=== PATIENT | male | born 1945 | race Two or more races ===

== ENCOUNTER → 2017-07-29 | Outpatient (CLI) | payer OTHER ==
--- NOTE | 2017-07-29 09:09 | Diagnostic Imaging Report ---
Indication: Abdominal pain Technique: Continuous helical transaxial imaging of the abdomen and pelvis was obtained from the lung bases to the pubic symphysis. No intravenous contrast was administered. Coronal 2-D reformats were also obtained. Automatic Exposure Control was utilized. Total Dose length Product (DLP): 812.[address] Dose Index Volume (CTDIvol): 14.46 mGy Comparison: none Findings: The lung bases are essentially clear. Evaluation of solid organs limited on this study done without contrast. There is no nephrolithiasis and no hydronephrosis. Mild arterial calcifications are noted. Diverticula demonstrated in the colon. Bladder is mildly distended. Prostate is prominent. The appendix is not seen. There are no secondary signs of acute appendicitis. There is narrowing of intervertebral discs and accompanying endplate osteophyte formation. Hypertrophied facet joints also demonstrated.. A low-density cyst or mass in the lower pole right kidney noted. IMPRESSION: No acute findings appreciated. Multiple incidental findings as above [facility] has communicated the preliminary results to the Emergency Department. Their findings are largely concordant with this report. The CT scanner at [facility] is accredited by the [employer] and the scans are performed using dose optimization techniques as appropriate to a performed exam including Automatic Exposure control.
== END | disposition home or self-care (01) ==
LOC: RAD 03:50
DX: R10.9 Unspecified abdominal pain (principal); K57.90 Diverticulosis of intestine, part unspecified, without perforation or abscess without bleeding; N20.0 Calculus of kidney
CPT/HCPCS: 74176

== ENCOUNTER 2020-08-03 10:41 | Emergency (ER) | payer MEDICARE, OTHER ==
[~2020-08-03] VITALS: Ht 160 cm; Wt 90.7 kg
[2020-08-03] MEDS ORDERED: Solu-MEDROL 125mg Inj IVP ONE (11:00)
[2020-08-03] MEDS ORDERED: Ipratropium 0.02% Inh Soln 2.5ml UD HHN ONE (11:00)
[2020-08-03] MEDS ORDERED: PREDNISONE20 MG ORAL (11:06)
[2020-08-03] MEDS ORDERED: ALBUTEROL SULF8.5 G1 INH (11:06)
[2020-08-03] MEDS ORDERED: AMLODIPINE BESYL5 MG ORAL (11:06)
[2020-08-03] MEDS ORDERED: METOPROLOL TART50 M1 ORAL (11:08)
[2020-08-03] MEDS ORDERED: OMEPRAZOLE20 M2 ORAL (11:08)
[2020-08-03] MEDS ORDERED: LIPITOR80 MG ORAL (11:08)
[2020-08-03 11:12] VITALS: BP 120/64
[2020-08-03] MEDS: Albuterol ud Inhalation HHN SCH ×2 (11:12→11:30)
[2020-08-03 11:13] LABS: BASOPHILS % (AUTO) 1.5 % (0.0-2.0); EOSINOPHILS % (AUTO) 16.1 % (0.0-3.0); HEMATOCRIT 44.3 % (42.0-52.0); HEMOGLOBIN 14.2 G/DL (14.2-18.0); LYMPHOCYTES % (AUTO) 25.5 % (20.0-45.0); MEAN CORPUSCULAR VOLUME 91 FL (80-99); MONOCYTES % (AUTO) 7.2 % (1.0-10.0); NEUTROPHILS % (AUTO) 49.7 % (45.0-75.0); PLATELET COUNT 216 K/UL (150-450); RED BLOOD COUNT 4.84 M/UL (4.70-6.10); RED CELL DISTRIBUTION WIDTH 12.7 % (11.6-14.8); WHITE BLOOD COUNT 6.3 K/UL (4.8-10.8)
--- NOTE | 2020-08-03 11:15 | Emergency Room Report ---
History of Present Illness General Chief Complaint: Dyspnea/Respdistress Source: Patient Present Illness HPI Patient presents with several days of worsening dyspnea. He has been using his inhaler more frequently. Also he has dyspnea on exertion. Over the last few days he has had severe chest pain with coughing. He feels this sharp and also pressure on the left-hand side of his chest he is not sure if this is his heart. He denies any fevers or chills. Patient was vaccinated for Covid and got his second dose last Saturday. Risk factors for cardiac disease: Hypercholesterolemia and hypertension No sore throat, palpitations, nausea, vomiting, diarrhea, dysuria, abdominal pain, joint pain, rashes, depression, anxiety, visual changes, dizziness, headache. In the past the patient had esophageal surgery and needs to pay close attention to his dietary intake. Allergies: Coded Allergies: No Known Allergies (Unverified , 08/03/20) COVID-19 Screening Contact w/high risk pt: No Experienced COVID-19 symptoms?: Yes Patient History Past Medical History: see triage record Past Surgical History: other - Esophageal surgery Social History: Denies: smoking, alcohol use, drug use Social History Narrative Born in [place] Reviewed Nursing Documentation: PMH: Agreed; PSxH: Agreed Nursing Documentation-PMH Past Medical History: No History, Except For Hx Cardiac Problems: Yes - high cholesterol Hx Hypertension: Yes Hx Asthma: Yes Hx Gastrointestinal Problems: Yes Review of Systems All Other Systems: negative except mentioned in HPI Physical Exam Vital Signs Date Time Temp Pulse Resp B/P (MAP) Pulse Ox O2 Delivery O2 Flow Rate FiO2 08/03/20 10:57 98.2 95 20 145/64 (91) 97 Room Air Sp02 EP Interpretation: reviewed, normal General Appearance: alert, GCS 15, non-toxic, mild distress Head: normocephalic Eyes: bilateral eye normal inspection, bilateral eye PERRL, bilateral eye EOMI ENT: normal pharynx, moist mucus membranes Neck: supple Respiratory: no accessory muscle use, respiratory distress - Mild, wheezing, expiration Cardiovascular #1: regular rate, rhythm, no edema Cardiovascular #2: 2+ radial (R) Gastrointestinal: normal inspection, normal bowel sounds, non tender, no mass, non-distended Musculoskeletal: back normal, normal range of motion, no calf tenderness, gait/station normal Neurologic: alert, oriented x3, grossly normal Psychiatric: mood/affect normal Skin: no rash, warm/dry Medical Decision Making Diagnostic Impression: Primary Impression: Asthma exacerbation Qualified Codes: J45.41 - Moderate persistent asthma with (acute) exacerbation Additional Impressions: Chest pain Qualified Codes: R07.9 - Chest pain, unspecified COVID-19 ruled out by laboratory testing ER Course Patient presents with 2 problems. One is shortness of breath with wheezing and cough. Patient has a history of asthma. This appears to be more severe at this time. We need to exclude Covid, pneumonia and exacerbation of asthma. Pulmonary bolus is less likely as the patient is satting at 97% without tachycardia. In addition the patient is complaining about left-sided chest pain that is more pleuritic and with cough. However he has risk factors and we need to exclude cardiac disease. Patient evaluated EKG, chest x-ray and labs. Patient treated with Solu-Medrol and DuoNeb with repeated albuterol. In addition I aspirin is given for the cardiac protection. EKG without injury. Chest x-ray no infiltrates. Patient improved with treatment however needs observation to exclude cardiac disease. Discussed with Dr. Benton who accepts patient in transfer. Patient with some paroxysms of coughing but respiratory distress is improved. There is still minimal expiratory wheezes. There is no evidence of bacterial infection at this time and therefore antibiotics are not administered. Patient improved and stable for transfer however still needing hospitalization. Laboratory Tests Test 08/03/20 10:58 08/03/20 11:00 08/03/20 12:30 White Blood Count 6.3 K/UL (4.8-10.8) Red Blood Count 4.84 M/UL (4.70-6.10) Hemoglobin 14.2 G/DL (14.2-18.0) Hematocrit 44.3 % (42.0-52.0) Mean Corpuscular Volume 91 FL (80-99) Mean Corpuscular Hemoglobin 29.3 PG (27.0-31.0) Mean Corpuscular Hemoglobin Concent 32.1 G/DL (32.0-36.0) Red Cell Distribution Width 12.7 % (11.6-14.8) Platelet Count 216 K/UL (150-450) Mean Platelet Volume 6.9 FL (6.5-10.1) Neutrophils (%) (Auto) 49.7 % (45.0-75.0) Lymphocytes (%) (Auto) 25.5 % (20.0-45.0) Monocytes (%) (Auto) 7.2 % (1.0-10.0) Eosinophils (%) (Auto) 16.1 % (0.0-3.0) H Basophils (%) (Auto) 1.5 % (0.0-2.0) Prothrombin Time 10.7 SEC (9.30-11.50) Prothrombin Time INR 1.0 (0.9-1.1) Activated Partial Thromboplast Time 25 SEC (23-33) Lactic Acid Level 1.50 mmol/L (0.4-2.0) Troponin I 0.003 ng/mL (0.000-0.056) Sodium Level 142 MMOL/L (136-145) Potassium Level 3.8 MMOL/L (3.5-5.1) Chloride Level 108 MMOL/L (98-107) H Carbon Dioxide Level 28 MMOL/L (21-32) Anion Gap 6 mmol/L (5-15) Blood Urea Nitrogen 15 mg/dL (7-18) Creatinine 1.1 MG/DL (0.55-1.30) Estimated Glomerular Filtration Rate > 60 mL/min (>60) Glucose Level 103 MG/DL (74-106) Calcium Level 8.7 MG/DL (8.5-10.1) Magnesium Level 2.0 MG/DL (1.8-2.4) Ferritin 98 NG/ML (8-388) Total Bilirubin 0.5 MG/DL (0.2-1.0) Aspartate Amino Transferase (AST) 24 U/L (15-37) Alanine Aminotransferase (ALT) 38 U/L (12-78) Alkaline Phosphatase 115 U/L (46-116) Lactate Dehydrogenase 217 U/L (81-234) Total Creatine Kinase 250 U/L (26-308) C-Reactive Protein, Quantitative < 0.4 mg/dL (0.00-0.90) Pro-B-Type Natriuretic Peptide 35 pg/mL (0-125) Total Protein 7.0 G/DL (6.4-8.2) Albumin 3.8 G/DL (3.4-5.0) Globulin 3.2 g/dL Albumin/Globulin Ratio 1.2 (1.0-2.7) Lipase 222 U/L (73-393) Urine Color Pale yellow Urine Appearance Clear Urine pH 7 (4.5-8.0) Urine Specific [place] 1.010 (1.005-1.035) Urine Protein Negative (NEGATIVE) Urine Glucose (UA) Negative (NEGATIVE) Urine Ketones Negative (NEGATIVE) Urine Blood 2+ (NEGATIVE) H Urine Nitrite Negative (NEGATIVE) Urine Bilirubin Negative (NEGATIVE) Urine Urobilinogen Normal MG/DL (0.0-1.0) Urine Leukocyte Esterase 1+ (NEGATIVE) H Urine RBC Pending Urine WBC Pending Urine Squamous Epithelial Cells Pending Urine Bacteria Pending Microbiology Date/Time Source Procedure Growth Status 08/03/20 10:58 Nasopharynx SARS-CoV-2 Antigen (Rapid)(MEGAN) - Final Complete EKG Diagnostic Results Rate: normal Rhythm: NSR ST Segments: no acute changes - [facility] Strip Diag. Results EP Interpretation: yes Rhythm: NSR, no PVC's, other - PACs Chest X-Ray Diagnostic Results Chest X-Ray Diagnostic Results : Chest X-Ray Ordered: Yes # of Views/Limited/Complete: 1 View Indication: Other EP Interpretation: Yes Interpretation: no consolidation, no effusion, no pneumothorax Impression: No acute disease Electronically Signed by: Electronically signed by Tarik Orozco MD Last Vital Signs Date Time Temp Pulse Resp B/P (MAP) Pulse Ox O2 Delivery O2 Flow Rate FiO2 08/03/20 16:00 98.0 100 19 120/84 Nasal Cannula 2.0 100 08/03/20 15:38 100 08/03/20 12:15 28 Status: improved Disposition: PLACE IN OBSERVATION Condition: Serious Tarik Orozco MD Aug 03, 2020 11:15
--- NOTE | 2020-08-03 11:24 | NUR ---
Patient presents to ER with c/o worsening dyspnea. He reported that he has been short of breath x 4 months and has been using his inhaler up to 4x daily. Over the last few days, he reports chest pain with his coughing which presents as sharp with pressure over his left chest. AAOx4 NKA 18G to [facility] Independently ambulatory
[2020-08-03 11:34] LABS: ANION GAP 6 mmol/L (5-15); BLOOD UREA NITROGEN 15 mg/dL (7-18); CALCIUM 8.7 MG/DL (8.5-10.1); CARBON DIOXIDE 28 MMOL/L (21-32); CHLORIDE 108 MMOL/L (98-107); CREATININE 1.1 MG/DL (0.55-1.30); POTASSIUM 3.8 MMOL/L (3.5-5.1); SODIUM 142 MMOL/L (136-145)
[2020-08-03 11:51] LABS: ALANINE AMINOTRANSFERASE 38 U/L (12-78); ALBUMIN 3.8 G/DL (3.4-5.0); ALBUMIN/GLOBULIN RATIO 1.2 (1.0-2.7); ALKALINE PHOSPHATASE 115 U/L (46-116); ASPARTATE AMINO TRANSFERASE 24 U/L (15-37); BILIRUBIN,TOTAL 0.5 MG/DL (0.2-1.0); CREATINE KINASE 250 U/L (26-308); FERRITIN 98 NG/ML (8-388); LACTATE DEHYDROGENASE 217 U/L (81-234)
[2020-08-03] MEDS ORDERED: Aspirin Baby 81mg ORAL ONE (12:00)
--- NOTE | 2020-08-03 12:51 | NUR ---
pt statse treatment has improved after treatment. pt able to provide urine sample at this time. pt is awaiting admission bed assignment, vital signs updated at this time. respirations even and non labored
--- NOTE | 2020-08-03 12:58 | NUR ---
ED Nurse Note: clinicals faxed to [facility] [place] for possible transfer
[2020-08-03 13:01] VITALS: BP 150/76
[2020-08-03 13:07] LABS: APPEARANCE,URINE CLEAR; BILIRUBIN, URINE NEGATIVE (NEGATIVE); COLOR,URINE PALE YELLOW; GLUCOSE, URINE (UA) NEGATIVE (NEGATIVE); KETONES,URINE NEGATIVE (NEGATIVE); LEUKOCYTE ESTERASE ,URINE 1+ (NEGATIVE); NITRITE,URINE NEGATIVE (NEGATIVE); PH,URINE 7 (4.5-8.0); PROTEIN,URINE NEGATIVE (NEGATIVE); UROBILINOGEN,URINE NORMAL MG/DL (0.0-1.0)
[2020-08-03] MEDS ORDERED: Albuterol ud Inhalation HHN ONE (13:45)
--- NOTE | 2020-08-03 14:49 | Diagnostic Imaging Report ---
Indication: Shortness of breath Technique: One view of the chest Comparison: none Findings: Lungs and pleural spaces are clear. Heart size is normal. Impression: No acute process
[2020-08-03 15:38] VITALS: BP 122/84
--- NOTE | 2020-08-03 15:55 | NUR ---
report called at this time to receiving RN. vital signs updated at this time.
[2020-08-03 16:00] VITALS: BP 120/84
== END 2020-08-03 16:00 | disposition other institution (70) ==
LOC: EMR 11:14
DX: J45.41 Moderate persistent asthma with (acute) exacerbation (principal); R07.9 Chest pain, unspecified; E78.00 Pure hypercholesterolemia, unspecified; J45.909 Unspecified asthma, uncomplicated; I10 Essential (primary) hypertension; Z79.899 Other long term (current) drug therapy
CPT/HCPCS: 36415; 71045; 80053; 81003; 82550; 82728; 83605; 83615; 83690; 83735; 83880; 84484; 85025; 85610; 85730; 86140; 87040; 93005; 94640; 96374; 99285; J2930